=== PATIENT | female | born 1990 | race American Indian/Alaskan Native ===

== ENCOUNTER 2020-09-27 03:10 | Inpatient (IN) | payer OTHER ==
[2020-09-27] MEDS ORDERED: OXYTOCIN DRIP 30,000 MILLIUNITS/500 ML BAG IV ONE ×2 (04:30→04:54)
[2020-09-27] MEDS ORDERED: OXYTOCIN 10 UNIT/1 ML INJ ONE (04:31)
[2020-09-27] MEDS ORDERED: LACTATED RINGERS 1,000 ML ONE ×3 (04:39→07:51)
[2020-09-27] MEDS ORDERED: ONDANSETRON 4 MG/2 ML INJ IV PRN (04:41)
[2020-09-27] MEDS ORDERED: diphenhydrAMINE 50 MG/ML VIAL IV PRN (04:41)
[2020-09-27] MEDS ORDERED: NALOXONE 0.4 MG/1 ML INJ IV PRN ×2 (04:41→06:01)
[2020-09-27] MEDS ORDERED: NalbUPHINE 10 MG/1 ML INJ IV PRN (04:41)
[2020-09-27] MEDS ORDERED: PROMETHAZINE 25 MG TAB PO PRN (04:41)
[2020-09-27] MEDS ORDERED: HYDROmorphone 1 MG/1 ML INJ IV PRN (04:41)
[2020-09-27] MEDS ORDERED: PROMETHAZINE 25 MG RECT SUPP PR PRN (04:41)
[2020-09-27 04:49] LABS: Hematocrit 33.4 % (30.3-42.9); Hemoglobin 11.1 gm/dl (10.1-14.3); Mean Corpuscular HGB Conc 33 % (30-34); Mean Corpuscular Volume 80 fl (79-97); Platelet Count 279 K/mm3 (140-440); Red Blood Count 4.17 M/mm3 (3.65-5.03); Red Cell Distribution Width 14.2 % (13.2-15.2)
[2020-09-27] MEDS ORDERED: LIDOCAINE MPF (2%) 20 MG/1 ML VIAL 5 ML ONE (04:52)
[2020-09-27] MEDS ORDERED: propofoL 200 MG/20 ML VIAL IV ONE (04:53)
[2020-09-27] MEDS ORDERED: SUCCINYLCHOLINE CHLORIDE 200 MG/10 ML INJ MDV ONE (04:53)
[2020-09-27] MEDS ORDERED: METOCLOPRAMIDE 10 MG/2 ML INJ ONE (04:54)
[2020-09-27] MEDS ORDERED: FAMOTIDINE 20 MG/2 ML INJ IV ONE (04:54)
[2020-09-27] MEDS ORDERED: BICITRA ORAL LIQD 30ML ONE ×2 (04:54→04:55)
[2020-09-27 05:13] LABS: Alanine Aminotransferase 12 units/L (7-56); Albumin 3.6 g/dL (3.9-5); Blood Urea Nitrogen 5 mg/dL (7-17); Calcium 8.7 mg/dL (8.4-10.2); Hemolysis Index 18
[2020-09-27 05:15] LABS: BUN/Creatinine Ratio 13
[2020-09-27] MEDS ORDERED: WATER FOR IRRIG STERILE 1,500 ML BOTTLE IR ONE (05:22)
[2020-09-27] MEDS ORDERED: ceFAZolin/STERILE WATER 2 GM/20 ML SYRINGE IV ONE (05:22)
[2020-09-27] MEDS ORDERED: SODIUM CHLORIDE 0.9% IRR 1,500 ML BOTTLE IR ONE (05:22)
[2020-09-27] MEDS ORDERED: KETOROLAC 30 MG/1 ML INJ ONE (05:26)
[2020-09-27] MEDS ORDERED: ONDANSETRON 4 MG/2 ML INJ ONE (05:27)
[2020-09-27] MEDS ORDERED: dexAMETHasone 20 MG/5 ML VIAL ONE (05:27)
[2020-09-27] MEDS ORDERED: HYDROmorphone 1 MG/1 ML INJ ONE (05:30)
[2020-09-27] MEDS ORDERED: TRANEXAMIC ACID 1,000 MG/10 ML ONE (05:33)
[2020-09-27] MEDS ORDERED: METHYLERGONOVINE MALEATE 0.2 MG/ML VIAL IM ONE (05:35)
[2020-09-27] MEDS ORDERED: BUPIVACAINE/PF (0.25%) 2.5 MG/ML 30 ML VIAL INFILTRATI ONE (05:39)
[2020-09-27] MEDS ORDERED: PHENYLEPHRINE/NS 1,000 MCG/10 ML SYRINGE (OR USE) IV ONE (05:42)
--- NOTE | 2020-09-27 05:55 | History and Physical Report ---
History of Present Illness Date of examination: 09/27/20 Date of admission: 09/27/20 05:44 Chief complaint: Leakage of fluid and uterine contractions History of present illness: 30-year-old G1, P0 at 32+3 weeks who presents with gross rupture membranes and advanced cervical dilatation of 10cm. The infant was found to be in stefan breech presentation. Past History Past Medical History: no pertinent history Past Surgical History: no surgical history Social history: single - Obstetrical History Expected Date of Delivery: 11/19/20 Actual Gestation: 32 Week(s) 4 Day(s) : 1 Para: 0 Hx # Term Pregnancies: 0 Number of Pregnancies: 0 Spontaneous Abortions: 0 Induced : 0 Number of Living Children: 0 Medications and Allergies Allergies Allergy/AdvReac Type Severity Reaction Status Date / Time No Known Allergies Allergy Verified 09/27/20 04:44 Home Medications Medication Instructions Recorded Confirmed Last Taken Type oxyCODONE /ACETAMINOPHEN [Percocet 1 tab PO Q6HR PRN #30 tablet 09/27/20 Unknown Rx 5/325] Active Meds: Active Medications Diphenhydramine HCl (Diphenhydramine 50 Mg/Ml Vial) 12.5 mg IV Q2H PRN PRN Reason: Itching Hydromorphone HCl (Hydromorphone 1 Mg/1 Ml Inj) 0.5 mg IV Q4H PRN PRN Reason: breakthrough pain > 7/10 Nalbuphine HCl (Nalbuphine 10 Mg/1 Ml Inj) 2.5 mg IV Q2H PRN PRN Reason: Itching Naloxone HCl (Naloxone 0.4 Mg/1 Ml Inj) 0.2 mg IV Q2MIN PRN PRN Reason: Res Rate </= 8 or 02 SAT < 92% Ondansetron HCl (Ondansetron 4 Mg/2 Ml Inj) 4 mg IV Q8H PRN PRN Reason: Nausea And Vomiting Promethazine HCl (Promethazine 25 Mg Tab) 25 mg PO Q6H PRN PRN Reason: Nausea And Vomiting Promethazine HCl (Promethazine 25 Mg Rect Supp) 25 mg FL Q6H PRN PRN Reason: Nausea And Vomiting Review of Systems All systems: negative Genitourinary: leakage of fluid, contractions - Vital Signs Vital signs: Vital Signs Pulse BP 86 121/80 09/27/20 03:43 09/27/20 03:43 Temp Pulse Resp BP Pulse Ox 86 121/80 09/27/20 03:43 09/27/20 03:43 - Physical Exam Breasts: Positive: deferred Cardiovascular: Regular rate Lungs: Positive: Clear to auscultation - Obstetrical Cervical Dilatation: 10 Results Result Diagrams: 09/27/20 16:49 09/27/20 04:30 Abnormal lab results 09/27/20 09/27/20 Range/Units 04:30 04:30 WBC 11.1 H (4.5-11.0) K/mm3 MCH 27 L (28-32) pg Sodium 134 L (137-145) mmol/L BUN 5 L (7-17) mg/dL Creatinine 0.4 L (0.6-1.2) mg/dL Albumin 3.6 L (3.9-5) g/dL All other labs normal. Assessment and Plan - Patient Problems (1) Breech presentation Current Visit: Yes Status: Acute Plan to address problem: Admit to labor and delivery for primary delivery for breech presentation (2) labor Current Visit: Yes Status: Acute
--- NOTE | 2020-09-27 05:59 | Procedure Note ---
OB Delivery Note - Delivery Date of Delivery: 09/27/20 Surgeon: JENNIFER BENNETT Estimated blood loss: 1000cc - Section Preop diagnosis: breech, other malpresentation Postop diagnosis: same section procedure: section, primary low transverse Disposition: PACU Complications: none - Infant A at 1 minute: 3 at 5 minutes: 8 Infant Gender: Male (Weight 4 pounds 8 ounces)
[2020-09-27] MEDS ORDERED: MORPHINE 4 MG/1 ML INJ IV PRN (06:01)
[2020-09-27] MEDS ORDERED: WITCH HAZEL/ GLYCERIN PAD TP PRN (06:01)
[2020-09-27] MEDS ORDERED: oxyCODONE /ACETAMINOPHEN 5-325MG TAB PO PRN (06:01)
[2020-09-27] MEDS ORDERED: ACETAMINOPHEN 325 MG TAB PO PRN (06:01)
[2020-09-27] MEDS ORDERED: LANOLIN/ZINC/DIMETHICONE (LANSINOH) 7 GM TP PRN (06:01)
--- NOTE | 2020-09-27 06:01 | Operative Report ---
Operative Report Operative Report: Date of surgery: September 27, 2020 Preoperative diagnosis: at 32+3 weeks; stefan breech presentation; pr eterm labor; spontaneous rupture membranes Postoperative diagnosis: Same as above Procedure: Primary low transverse delivery Surgeon: Kristina Siegel M.D. Anesthesia: General endotracheal anesthesia Estimated blood loss: 1000 mL Findings: Liveborn male infant in stefan breech presentation with Apgars of 3 and 8 weight 4 pounds 8 ounces Indications: 30-year-old at 32+3 weeks presents to labor and delivery triage in active labor with spontaneous rupture membranes. The patient was found to be completely dilated and stefan breech presentation. Procedure: The patient was taken to the operating room and given regional anesthesia without complication. She was prepped and draped in a normal sterile fashion. A Pfannenstiel skin incision was made down to layer the fascia which was nicked in the midline extended laterally with the Bovie cautery. The superior aspect of the rectus fascia was grasped with Superior clamps x2 and the rectus muscles off sharply. This was done in inferior fashion as well. The rectus muscle midline and peritoneum entered bluntly. An Vikas retractor was then inserted. A bladder blade was placed. The vesicouterine peritoneum was then entered sharply with Metzenbaum scissors. A bladder flap was created digitally. A low transverse uterine incision was then made and extended digitally. There was clear fluid upon entry into the uterine cavity. The legs were delivered through the incision with fundal pressure. The upper extremities were delivered via Pinard's maneuver. The head was delivered with fundal pressure. The cord was clamped and cut x2 and was passed off to pediatrics. The placenta was then manually extracted. The uterus was then exteriorized and cleared of clots and debris. The uterine incision was then closed in a running locked fashion with 0 Vicryl additional imbricating stitch was applied for 2 layer closure. The serosa was then reapproximated with 3-0 Vicryl. The posterior cul-de-sac was then copiously irrigated. The uterus was replaced back into the abdomen and pelvis were the gutters were then irrigated. The Vikas retractor was then removed. The peritoneum was then reapproximated with 3-0 Vicryl incorporating the rectus muscle. The fascia was then closed with 0 Vicryl in a running fashion. The skin was then reapproximated with 3-0 Monocryl on a Ulises needle subcuticular fashion. Steri-Strips to place across the incision and a Crede procedures performed at the end of the surgery. A pressure dressing was applied to the inc ision. The surgery productive of a liveborn male infant with Apgars of 3 and 8 weight 4 pounds 8 ounces. The patient was taken to the recovery room in stable condition. All sponge laps and needle counts correct x2.
[2020-09-27] MEDS ORDERED: BUPIVACAINE/PF (0.25%) 2.5 MG/ML 10 ML VIAL INFILTRATI ONE (06:12)
[2020-09-27] MEDS ORDERED: D5W/LACTATED RINGERS 1,000 ML IV SCH (07:00)
[2020-09-27] MEDS ORDERED: OXYTOCIN DRIP 30 UNITS/500 ML BAG IV SCH (07:00)
--- NOTE | 2020-09-27 07:02 | Anesthesia Day of Surgery ---
Anesthesia Day of Surgery - Day of Surgery Patient Examined: Yes Patient H&P Reviewed: Yes Patient is NPO: Yes Beta Blockers: No Cardiac Clearance: No Pulmonary Clearance: No Judson's Test: N/A
--- NOTE | 2020-09-27 07:02 | Anesthesia Consultation ---
Anesthesia Consult and Med Hx Date of service: 09/27/20 - Airway Anesthetic Teeth Evaluation: Good ROM Head & Neck: Adequate Mental/Hyoid Distance: Adequate Mallampati Class: Class II Intubation Access Assessment: Probably Good - Pulmonary Exam CTA: Yes - Cardiac Exam Cardiac Exam: RRR - Pre-Operative Health Status ASA Pre-Surgery Classification: ASA2, Emergency Proposed Anesthetic Plan: General Nerve Block: TAP - Pulmonary Hx Smoking: No Hx Asthma: No Hx Sleep Apnea: No - Cardiovascular System Hx Hypertension: No Hx Heart Attack/AMI: No Hx Angina: No - Central Nervous System Hx Seizures: No - Gastrointestinal Hx Gastroesophageal Reflux Disease: No - Endocrine Hx Renal Disease: No Hx Liver Disease: No Hx Insulin Dependent Diabetes: No Hx Non-Insulin Dependent Diabetes: No - Other Systems Hx Alcohol Use: No
--- NOTE | 2020-09-27 07:03 | Progress Note ---
Regional Anesthesia Block - Regional Anesthesia Block Start Time: 06:10 Stop Time: 06:20 Performed By:: JANE BARRIOS Procedure: Patient consented for TAP block for post surgical pain management. Patient identified, monitors placed, and time out performed. Mid axillary TAP identified bilaterally via ultrasound. Skin prepped bilaterally with [chlorhexidine] and [20g stimuplex] needle advanced to the TAP. 30ml [Marcaine 0.25% with 25mcg Precedex and Decadron 5mg] injected under ultrasound guidance on the [left] side. 30ml [Marcaine 0.25% with 25mcg Precedex and Decadron 5mg] injected under ultrasound guidance on the [right] side. Negative aspiration every 5mL, Patient tolerated the procedure well. No apparent complications seen.
[2020-09-27] MEDS: KETOROLAC 30 MG/1 ML INJ IV PRN (15:03)
[2020-09-27 17:07] LABS: Hematocrit 31.7 % (30.3-42.9)
[2020-09-28] MEDS: KETOROLAC 30 MG/1 ML INJ IV PRN (06:04)
[2020-09-28] MEDS: IBUPROFEN 600 MG TAB PO PRN ×2 (12:59→18:16)
--- NOTE | 2020-09-28 13:43 | Progress Note ---
Assessment and Plan - Patient Problems (1) Status post primary low transverse section Current Visit: Yes Status: Acute Plan to address problem: Continue routine PP orders Keep dressing clean and dry, remove on POD#2 Anticipate d/c home in 24-48 hrs if stable (2) Anemia Current Visit: Yes Status: Acute Qualifiers: Anemia type: other cause Other causes of anemia: acute posthemorrhagic Qualified Code(s): D62 - Acute posthemorrhagic anemia Plan to address problem: Asymptomatic Increase iron rich foods into diet Subjective - Subjective Date of service: 09/28/20 Principal diagnosis: S/P primary C/S; POD#1 Interval history: 30-year-old G1, P0 at 32+3 weeks who presents with gross rupture membranes and advanced cervical dilatation of 10cm. The infant was found to be in stefan breech presentation. Patient reports: appetite normal, voiding normally, pain well controlled (with medications), flatus, ambulating normally, no bowel movement : in NICU, bottle feeding Objective - Vital Signs Latest vital signs: Vital Signs Temp Pulse Resp BP BP Pulse Ox 09/28/20 08:11 98.0 F 97 H 20 115/76 100 09/28/20 06:04 18 09/28/20 00:05 98.0 F 82 18 118/68 100 09/27/20 19:38 18 09/27/20 16:24 97.8 F 80 20 105/70 100 Intake and Output 09/27/20 09/28/20 09/28/20 23:59 07:59 15:59 Intake Total 120 120 240 Output Total 1000 Balance -880 120 240 Intake: Oral 120 120 240 Output: Urine 1000 Indwelling Catheter 600 Void 200 Other: Total, Intake Amount 120 120 120 Total, Output Amount 200 Voiding Method Toilet # Voids 1 Void 1 1 1 - Exam Breasts: Present: normal Cardiovascular: Present: Regular rate Lungs: Present: Normal air movement Abdomen: Present: soft, tenderness Uterus: Present: firm, fundal height below umbilicus (U-2) Extremities: Present: normal Deep Tendon Reflex Grade: Normal +2 Incision: Present: dressed (no shadow drainage or bleeding noted) - Labs Labs: Abnormal lab results 09/27/20 Range/Units 16:49 Hgb 10.0 L (10.1-14.3) gm/dl
--- NOTE | 2020-09-28 14:43 | Post Anesthesia Evaluation ---
- Post Anesthesia Evaluation Patient Participated: Yes Airway Patent: Yes Stable Respiratory Function: Yes Nausea/Vomiting: No Temp > 96.8F: Yes Pain Manageable: Yes Adequeate Hydration: Yes Anesthesia Complications: No Block Receding Appropriately: Yes Patient on Ventilator: No
[2020-09-29] MEDS: IBUPROFEN 600 MG TAB PO PRN (00:03)
[2020-09-29] MEDS ORDERED: TETANUS,DIPH,PERTUSS(ACELL) VACCINE 0.5 ML SYRINGE IM ONE (06:00)
--- NOTE | 2020-09-29 13:41 | Progress Note ---
Assessment and Plan - Patient Problems (1) Status post primary low transverse section Current Visit: Yes Status: Acute Plan to address problem: Continue routine PP orders Keep incision clean and dry Anticipate d/c home in 24 hrs if stable (2) Anemia Current Visit: Yes Status: Acute Qualifiers: Anemia type: other cause Other causes of anemia: acute posthemorrhagic Qualified Code(s): D62 - Acute posthemorrhagic anemia Plan to address problem: Asymptomatic Increase iron rich foods into diet Subjective - Subjective Date of service: 09/29/20 Principal diagnosis: S/P primary C/S; POD#2 Interval history: 30-year-old G1, P0 at 32+3 weeks who presents with gross rupture membranes and advanced cervical dilatation of 10cm. The infant was found to be in stefan breech presentation. Patient reports: appetite normal, voiding normally, pain well controlled, flatus, ambulating normally : in NICU Objective - Vital Signs Latest vital signs: Vital Signs Temp Pulse Resp BP BP Pulse Ox 09/29/20 08:10 98.7 F 86 20 121/84 100 09/29/20 00:03 98.8 F 90 20 120/66 100 09/28/20 15:59 98.4 F 93 H 20 105/59 100 Intake and Output 09/28/20 09/29/20 09/29/20 23:59 07:59 15:59 Intake Total 200 240 Balance 200 240 Intake: Oral 200 240 Other: Total, Intake Amount 200 240 Voiding Method Toilet # Voids Void 1 1 - Exam Breasts: Present: normal Cardiovascular: Present: Regular rate Lungs: Present: Normal air movement Abdomen: Present: soft, tenderness Uterus: Present: firm, fundal height below umbilicus (U-2) Extremities: Present: normal Deep Tendon Reflex Grade: Normal +2 Incision: Present: dry, intact (steri-strips intact, no drainage noted)
--- NOTE | 2020-09-30 13:10 | Discharge Summary ---
Providers - Providers Date of Admission: 09/27/20 05:44 Date of discharge: 09/30/20 Attending physician: JENNIFER BENNETT Primary care physician: JENNIFER BENNETT Hospitalization Reason for admission: labor, rupture of membranes Delivery: Procedure: section, primary low transverse Procedure details: Please see operative report Incision: intact Other procedures: none complications: none Discharge diagnosis: delivery [place] baby: male Hospital course: Pt was admitted in labor with advanced cervical dilation premature rupture of membranes and malpresentation of the fetus. She underwent primary section which she tolerated well. The remainder of her postoperative course was uncomplicated as she met discharge criteria on postoperative day #3. She will follow-up in the office in 2 weeks for an incision check. Condition at discharge: Stable Disposition: TO HOME OR SELFCARE - Discharge Diagnoses (1) Anemia Status: Acute Qualifiers: Anemia type: other cause Other causes of anemia: acute posthemorrhagic Qualified Code(s): D62 - Acute posthemorrhagic anemia (2) premature rupture of membranes (PPROM) delivered, current hospitalization Status: Acute (3) Breech presentation Status: Acute Qualifiers: Fetus number: single or unspecified fetus Qualified Code(s): O32.1XX0 - Maternal care for breech presentation, not applicable or unspecified (4) labor Status: Acute Qualifiers: labor trimester: third trimester labor delivery status: with delivery in third trimester Fetus number: single or unspecified fetus Qualified Code(s): O60.14X0 - labor third trimester with delivery third trimester, not applicable or unspecified (5) Status post primary low transverse section Status: Acute Plan - Discharge Medications Prescriptions: Ferrous Sulfate [Feosol 325 MG tab] 325 mg PO BID #60 tablet Ibuprofen [Motrin] 800 mg PO Q8HR PRN #30 tablet PRN Reason: Pain, Moderate (4-6) oxyCODONE /ACETAMINOPHEN [Percocet 5/325] 1 tab PO Q6HR PRN #30 tablet PRN Reason: Pain - Provider Discharge Summary Activity: routine, no sex for 6 weeks, no heavy lifting 4 weeks, no strenuous exercise Diet: routine Instructions: routine Additional instructions: [] Smoking cessation referral if applicable(refer to patient education folder for contact #) [] Refer to [facility] Booklet Call your doctor immediately for: * Fever > 100.5 * Heavy vaginal bleeding ( >1 pad per hour) * Severe persistent headache * Shortness of breath * Reddened, hot, painful area to leg or breast * Drainage or odor from incision. * Keep incision clean and dry at all times and follow doctor's instructions regarding bathing/showering - Follow up plan Follow up: ANU PAN CNM [Advanced Practice Nurse] - 14 Days (please schedule incision check ) Forms: [facility] Discharge Summary
--- NOTE | 2020-09-30 13:10 | Progress Note ---
Assessment and Plan A: POD#3 s/p primary section at 32 wks secondary to PPROM, Labor, Malpresentation P: Routine advances. Anticipate discharge today Subjective - Subjective Date of service: 09/30/20 Principal diagnosis: S/P primary C/S; POD#3 Interval history: Pt without unusual complaints. Looking forward to sleeping in her own bed. Patient reports: appetite normal, voiding normally, pain well controlled, flatus, bowel movement, ambulating normally, no dizzy ambulation : in NICU Objective - Vital Signs Latest vital signs: Vital Signs Temp Pulse Resp BP Pulse Ox 09/30/20 08:06 98.5 F 102 H 16 124/79 100 09/30/20 01:46 98.1 F 93 H 18 123/81 100 09/29/20 19:43 18 Intake and Output 09/29/20 09/30/20 09/30/20 22:59 06:59 14:59 Intake Total 240 240 240 Balance 240 240 240 Intake: Oral 240 Intake, Free Water 240 240 Other: Total, Intake Amount 120 # Voids Void 2 1 1 - Exam Breasts: Present: deferred Abdomen: Present: soft (obese ) Uterus: Present: fundal height at umbilicus Extremities: Present: edema (trace) Incision: Present: intact
[2020-09-30 17:01] VITALS: BP 133/88
== END 2020-09-30 17:00 | disposition home or self-care (01) | DRG 765 ==
LOC: TRG 03:10 → APU 03:18 → TRG 05:43 → APU 05:44 → OB 08:26
PROVIDERS: ADMIT Obstetrics & Gynecology; ATTEND Obstetrics & Gynecology
PROC: 10D00Z1 Extraction of Products of Conception, Low, Open Approach (ICD-10-PCS; principal; 2020-09-27)
PROC: 3E0234Z Introduction of Serum, Toxoid and Vaccine into Muscle, Percutaneous Approach (ICD-10-PCS; 2020-09-29)
DX: O32.1XX0 Maternal care for breech presentation, not applicable or unspecified (principal); O60.14X0 Preterm labor third trimester with preterm delivery third trimester, not applicable or unspecified; Z20.822 Contact with and (suspected) exposure to COVID-19; Z37.0 Single live birth; Z3A.32 32 weeks gestation of pregnancy; D62 Acute posthemorrhagic anemia; O99.02 Anemia complicating childbirth; Z23 Encounter for immunization
CPT/HCPCS: 36415; 80053; 85014; 85018; 85027; 86850; 86900; 86901; 90715; 99211; G0378; G0463; J0330; J0690; J1100; J1170; J1885; J2270; J2370; J2405; J2704; J3490; J7120; U0003